=== PATIENT | male | born 1985 | race Caucasian/White ===

== ENCOUNTER 2023-08-09 15:44 | Emergency (ER) | payer OTHER ==
[2023-08-09 16:49] LABS: BASOPHILS ABSOLUTE AUTO 0.03 K/uL (0.00-0.10); BASOPHILS PERCENT AUTO 0.4 % (0.1-1.3); EOSINOPHILS ABSOLUTE AUTO 0.23 K/uL (0.00-0.40); HEMOGLOBIN 15.8 g/dL (12.9-16.9); IMMATURE GRAN ABSOLUTE AUTO 0.04 K/uL (0.00-0.23); IMMATURE GRAN PERCENT AUTO 0.5 % (0.0-0.7); LYMPHOCYTES PERCENT AUTO 21.9 % (11.4-47.7); MEAN CORPUSCULAR HEMOGLOBIN 31.7 pg (31.6-35.5); MEAN CORPUSCULAR HGB CONC 36.7 g/dL (31.6-35.5); MEAN CORPUSCULAR VOLUME 86.3 fL (81.4-99.0); MONOCYTES ABSOLUTE AUTO 0.65 K/uL (0.20-0.90); MONOCYTES PERCENT AUTO 8.4 % (3.3-12.6); NEUTROPHILS ABSOLUTE AUTO 5.12 K/uL (1.0-7.6); NEUTROPHILS PERCENT AUTO 65.8 % (40.0-78.1); PLATELET COUNT,PLT 198 K/uL (130-375); RED BLOOD CELL COUNT 4.98 M/uL (4.14-5.76); WHITE BLOOD CELL COUNT,WBC 7.8 K/uL (3.2-11.0)
[2023-08-09 16:50] LABS: BASE EXCESS VENOUS 1.3 mm/L; BICARBONATE,VENOUS 25.3 mmol/L; CARBOXYHEMOGLOBIN 2.3 % (0.0-1.6); O2 SATURATION VENOUS 82.2; OXYHEMOGLOBIN 79.5 %; PH,VENOUS 7.418 (7.350-7.450); PO2 VENOUS 46.8 mm/Hg; TOTAL HEMOGLOBIN 16.5 g/dL (13.5-18.0)
[2023-08-09] MEDS: Aspirin 81 MG Tab.Chew PO ONE (17:02)
[2023-08-09 17:06] LABS: PROTHROMBIN TIME 10.4 sec (9.2-10.6)
[2023-08-09 17:13] LABS: A/G RATIO 0.9 (1.2-2.2); ALANINE AMINOTRANSFERASE,ALT 101 U/L (12-78); ALBUMIN 3.5 g/dL (3.4-5.0); ALKALINE PHOSPHATASE 77 U/L (46-116); ANION GAP 8.9 mmol/L (5.0-14.0); ASPARTATE AMNIOTRANSFERASE,AST 43 U/L (15-37); BILIRUBIN TOTAL 0.4 mg/dL (0.2-1.0); BLOOD UREA NITROGEN,BUN 21 mg/dL (7-18); CALCIUM 9.6 mg/dL (8.5-10.1); CARBON DIOXIDE,CO2 27 mmol/L (21-32); CHLORIDE,CL 104 mmol/L (100-108); CREATININE 1.2 mg/dL (0.8-1.3); EST CRCL DRUG DOSING (CG) 79.96 mL/min; ESTIMATED GFR 79 mL/min (>60); GLUCOSE RANDOM 111 mg/dL (74-106); POTASSIUM,K 3.9 mmol/L (3.6-5.2); PROTEIN TOTAL,TP 7.4 g/dL (6.4-8.2); SODIUM,NA 140 mmol/L (140-148)
[2023-08-09 17:31] LABS: LYME AB IgG Negative (Negative); LYME AB IgM Negative (Negative)
[2023-08-09 18:57] LABS: CORONAVIRUS COVID-19 NAA NEGATIVE (NEGATIVE); INFLUENZA A NAA NEGATIVE (NEGATIVE); INFLUENZA B NAA NEGATIVE (NEGATIVE); RESPIRATORY SYNCYTIAL VIR NAA NEGATIVE (NEGATIVE)
[2023-08-14 18:17] LABS: ANAPLASMA PHAGOCYTOPHILUM PCR Not Detected; BABESIA MICROTI BY PCR Not Detected; BABESIA SPECIES BY PCR Not Detected; EHRLICHIA CHAFFEENSIS BY PCR Not Detected; EHRLICHIA EWINGII/CANIS BY PCR Not Detected; EHRLICHIA MURIS-LIKE BY PCR Not Detected
== END 2023-08-09 17:45 | disposition home or self-care (01) ==
LOC: JP.ED 15:44
DX: R07.89 Other chest pain (principal); F17.210 Nicotine dependence, cigarettes, uncomplicated; Z86.16 Personal history of COVID-19; Z79.899 Other long term (current) drug therapy
CPT/HCPCS: 0241U; 36415; 71045; 80053; 80307; 82803; 83605; 83690; 84145; 84484; 85025; 85379; 85610; 86618; 87468; 87469; 87484; 87798; 93005; 99285; A9270; 93010; 99283